=== PATIENT | female | born 1945 | race Two or more races ===

== ENCOUNTER 2018-01-14 08:58 | Outpatient (CLI) | payer OTHER | END 2018-01-14 09:08 | disposition home or self-care (01) | LOC: MAMO-SONO 08:58 | DX: Z12.31 Encounter for screening mammogram for malignant neoplasm of breast (principal) ==

== ENCOUNTER → 2018-10-09 | Outpatient (CLI) | payer OTHER | END | disposition home or self-care (01) | LOC: NUCLEAR 12:38 | DX: M81.0 Age-related osteoporosis without current pathological fracture (principal) ==

== ENCOUNTER 2019-11-23 08:47 | Outpatient (CLI) | payer OTHER | END 2019-11-23 08:53 | disposition home or self-care (01) | LOC: RAD 08:47 | DX: M54.5 Low back pain (principal); M25.531 Pain in right wrist; M25.532 Pain in left wrist ==

== ENCOUNTER 2019-12-01 11:40 | Outpatient (CLI) | payer OTHER | END 2019-12-01 11:51 | disposition home or self-care (01) | LOC: SONOGRAMA 11:40 | DX: M25.532 Pain in left wrist (principal); M79.642 Pain in left hand ==

== ENCOUNTER 2020-02-01 14:05 | Outpatient (CLI) | payer OTHER | END 2020-02-01 14:10 | disposition home or self-care (01) | LOC: RAD 14:05 | PROVIDERS: ATTEND Orthopaedic Surgery Orthopaedic Surgery of the Spine | DX: M54.5 Low back pain (principal) ==

== ENCOUNTER 2020-03-14 14:41 | Outpatient (CLI) | payer OTHER | END 2020-03-14 15:17 | disposition home or self-care (01) | LOC: RAD 14:41 | PROVIDERS: ATTEND Orthopaedic Surgery Orthopaedic Surgery of the Spine | DX: M43.17 Spondylolisthesis, lumbosacral region (principal); M54.5 Low back pain ==

== ENCOUNTER 2020-06-09 09:33 | Outpatient (CLI) | payer OTHER | END 2020-06-09 09:35 | disposition home or self-care (01) | LOC: RAD 09:33 | PROVIDERS: ATTEND Orthopaedic Surgery Orthopaedic Surgery of the Spine | DX: M54.5 Low back pain (principal) ==

== ENCOUNTER 2020-07-11 09:44 | Outpatient (CLI) | payer OTHER | END 2020-07-11 09:57 | disposition home or self-care (01) | LOC: RAD 09:44 | PROVIDERS: ATTEND Obstetrics & Gynecology | DX: Z12.31 Encounter for screening mammogram for malignant neoplasm of breast (principal); N64.4 Mastodynia ==

== ENCOUNTER 2022-01-03 10:39 | Outpatient (CLI) | payer OTHER | END 2022-01-03 10:40 | disposition home or self-care (01) | LOC: MRI 10:39 | DX: M54.16 Radiculopathy, lumbar region (principal); M43.26 Fusion of spine, lumbar region; M54.18 Radiculopathy, sacral and sacrococcygeal region | CPT/HCPCS: 72148; 72195 ==